=== PATIENT | male | born 1945 | race Caucasian/White ===

== ENCOUNTER → 2017-06-09 | Day surgery (SDC) | payer MEDICARE, OTHER ==
[~2017-06-09] VITALS: Ht 182.9 cm; Wt 129.5 kg
[~2017-06-09] MED LIST: AMPICILLIN/SULBAC 3 GM/NS 100 ML IV PRN; ASPI81TA11 PO; CHLORHEXIDINE GLUCONATE 2 % 1 PACK (2 CLOTHS) TOPICAL PRN; FURO1TAB60 PO; INSULIN HUMAN REGULAR 1,000 UNITS/10 ML VIAL SQ PRN; LACTATED RINGER'S 1000 ML IV PRN; LIDOCAINE 1%/EPINEPHrine 1:100,000 SOLN 30 ML VIAL INFIL ONE; LIPI40TA PO; METO50TA PO; METOPROLOL TARTRATE 25 MG TAB PO PRN; OFLOXACIN 0.3% OPTH SOLN 5 ML BTL EACH EAR ONE; ONDANSETRON HCL 4 MG/2 ML VIAL IV PUSH ONE; OXYMETAZOLINE HCL 0.05% 15 ML NASAL SPRAY NASAL ONE; POTA20TA5 PO; POVIDONE IODINE 5% (ANTISEPSIS KIT) 4 APPLICATIONS EACH NARE PRN; PRAD150C PO; PROPOFOL 200 MG/20 ML AMP IV ONE; SODIUM CHLORID 0.9% 500 ML IV PRN; WELLTAB39 PO; ZANT150T2 PO; ZETI10TA5 PO
[2017-06-09 06:41] VITALS: BP 151/68; PULSE 75; RESP 20; TEMP 97.7; O2SAT 96
[2017-06-09 09:10] VITALS: BP 152/75; PULSE 70; RESP 16; TEMP 98.2; O2SAT 95
--- NOTE | 2017-06-09 12:04 | EKG ---
Date Performed: 06/09/2017 Time Performed: 06:44:18 PTAGE: 72 years EKG: ATRIAL FIBRILLATION with controlled venticular rate Low limb lead voltage Compared to prior tracing no significant change PREVIOUS TRACING : 01/04/2013 10.43 DOCTOR: Khurram Pro Interpretating Date/Time 06/09/2017 12:02:30
--- NOTE | 2017-06-23 14:35 | MP ---
cc: FLOR BUSTOS M.D. DATE OF SURGERY: 06/09/2017 SURGEON: Flor Bustos MD. PREOPERATIVE DIAGNOSIS: 1. Mixed hearing loss. 2. Bilateral cerumen impaction. POSTOPERATIVE DIAGNOSIS: 1. Mixed hearing loss. 2. Bilateral cerumen impaction. OPERATION PERFORMED Bilateral cerumen disimpaction INDICATIONS Documented history and physical. DESCRIPTION OF OPERATION The patient was taken to OR #2 and placed in the supine position following induction of general anesthesia and intubation. He is laryngeal mask apparatus the right ear was examined under microscope and cleaned with a curette. There was dense pack of cerumen in the medial one half of the canal, which was adherent to the canal skin. This was mobilized using a Cade needle and retrieved with alligator forceps. The canal rae were intact. Tympanic membrane was intact and the middle ear well aerated. The left ear then operated in same fashion with the same findings and the procedure was terminated. The patient was reversed from anesthesia and taken to recovery in good condition. There were no complications or blood loss. MD DAMARIS Turcios/august /1:28 PM /2:27 PM
== END | disposition home or self-care (01) ==
LOC: PHSDC 06:09
PROVIDERS: ATTEND Otolaryngology
DX: H61.23 Impacted cerumen, bilateral (principal); H90.6 Mixed conductive and sensorineural hearing loss, bilateral; H60.312 Diffuse otitis externa, left ear; I10 Essential (primary) hypertension; I48.91 Unspecified atrial fibrillation; Z01.810 Encounter for preprocedural cardiovascular examination
CPT/HCPCS: 00124; 69210; 93005; J0295; J2405; J7120

== ENCOUNTER 2018-10-25 06:31 | Inpatient (IN) ==
--- NOTE | 2018-10-25 07:31 | ED ---
HPI General Chief complaint: Extremity Injury, Lower Stated complaint: Knee pain Time Seen by Provider: 10/25/18 06:59 History of Present Illness HPI narrative: Patient is a 73-year-old male presents emergency department for evaluation of bilateral knee pain worse on the left. Patient states he was up and about in his house today and he got up to go to the bathroom when he felt very faint fell down landing on bilateral flexed knees. Planing of anterior knee pain particularly on the left side. 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 Patient states he was not have any chest pain shortness of breath just feeling very faint. He does have a history of atrial fibrillation on Pradaxa. He denies any headache but does state that he was noted to have a scratch on his forehead. He attempted to crawl himself to a powder room and attempted to stand himself using the toilet is a lifting point was unable to get up. EMS found him on the floor in the bathroom and brought him to the emergency department for further workup. States the pain is minimal, left knee greater than right knee, associated signs symptoms and context as above. Related Data Home Medications Medication Instructions Recorded Confirmed aspirin 81 mg PO DAILY 06/11/18 10/25/18 atorvastatin [Lipitor] 40 mg PO HS 06/11/18 10/25/18 bupropion HCl [Wellbutrin XL] 300 mg PO QAM 06/11/18 10/25/18 ezetimibe [Zetia] 10 mg PO HS 06/11/18 10/25/18 furosemide [Lasix] 40 mg PO DAILY 06/11/18 10/25/18 metoprolol tartrate 50 mg PO BID 06/11/18 10/25/18 multivitamin 1 tab PO DAILY 06/11/18 10/25/18 ranitidine HCl 75 mg PO BID 06/11/18 10/25/18 dabigatran etexilate [Pradaxa] 150 mg PO BID 10/25/18 10/25/18 potassium chloride 10 meq PO DAILY 10/25/18 10/25/18 Previous Rx's Medication Instructions Recorded tramadol [Ultram] 50 mg PO Q6H PRN #12 tab 10/27/18 lorazepam 1 mg PO Q4-6H PRN #20 tab 10/29/18 Allergies Allergy/AdvReac Type Severity Reaction Status Date / Time No Known Allergies Allergy Verified 10/25/18 07:22 Review of Systems ROS: all other systems reviewed are negative PMFSH Social History Social History Substance History: No History of Abuse Second Hand Smoke Exposure: No Smoking Status: Former smoker Tobacco Type: Cigarettes How Often Do You Have a Drink Containing Alcohol: 4 or more times a week Recent Travel in [facility] within the Last 8 Weeks: No Recent Out of Country Travel within the Last 8 Weeks: No Immunization History Tetanus Immunization: Unsure Exam Narrative Exam Narrative: GENERAL: Well-developed well-nourished in no obvious distress, quite pleasant SKIN: Focused skin assessment warm/dry. HEAD: No pedraza signs no raccoon's eyes. Minimal excoriation of the left forehead. Normocephalic. EYES: Pupils equal and round. No scleral icterus. No injection or drainage. ENT: No nasal bleeding or discharge. Mucous membranes pink and moist. NECK: Trachea midline. No JVD. CARDIOVASCULAR: Regular rate and rhythm. No murmur appreciated. RESPIRATORY: No accessory muscle use. Clear to auscultation. Breath sounds equal bilaterally. GASTROINTESTINAL: Abdomen soft, non-tender, nondistended. Hepatic and splenic margins not palpable. MUSCULOSKELETAL: No obvious deformities. No clubbing. No cyanosis. No edema. Bilateral abrasions to the knees over the kneecaps. Patient does have tenderness with extension of the left knee. Right knee is full nontender range of motion. No joint effusion, no tenderness medially and laterally or posteriorly. Ankles, hips unremarkable. No midline CT or L-spine tenderness. NEUROLOGICAL: Awake and alert. No obvious cranial nerve deficits. Motor grossly within normal limits. Normal speech. PSYCHIATRIC: Appropriate mood and affect; insight and judgment normal. Course Initial Documented Vital Signs Temperature 97.9 F 10/25/18 06:33 Pulse Rate 77 10/25/18 06:33 Respiratory Rate 16 10/25/18 06:33 Blood Pressure 143/101 H 10/25/18 06:33 Pulse Oximetry 98 10/25/18 06:33 Last Documented Vital Signs Temperature 98.5 F 10/29/18 16:00 Pulse Rate 80 10/29/18 16:00 Respiratory Rate 16 10/29/18 16:00 Blood Pressure 126/59 L 10/29/18 16:00 Pulse Oximetry 97 10/29/18 16:00 Medical Decision Making MDM Narrative Medical decision making narrative: Patient room in the emergency department, he appears well vital signs within normal limits. No chest pain. Is endorsing presyncopal type symptoms leading to a fall today and inability to ambulate and put weight on his left knee. X-rays of the knees are negative. EKG shows atrial fibrillation with minimal ST segment depression in 2 3 and aVF but there is also an RSR prime pattern here indicating a nonspecific intraventricular conduction delay. This is an abnormal EKG but certainly does not represent acute ischemia. Patient's troponin is 0.23 and there is no previous for comparison. 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 Medical Screen Exam Complete: Yes Emergency Medical Condition: Yes Lab Data Result diagrams: 10/26/18 05:59 10/26/18 05:59 Lab Results 10/25/18 10/25/18 10/25/18 Range/Units 07:30 07:30 13:46 WBC 7.4 (4.0-11.0) th/mm3 RBC 3.78 L (4.50-5.90) mil/mm3 Hgb 13.3 (13.0-17.0) gm/dL Hct 38.5 L (39.0-51.0) % MCV 101.9 H (80.0-100.0) fL MCH 35.3 H (27.0-34.0) pg MCHC 34.7 (32.0-36.0) % RDW 16.0 (11.6-17.2) % Plt Count 245 (150-450) th/mm3 MPV 7.1 (7.0-11.0) fL Prelim Diff (Auto) Neut % (Auto) 67.9 (16.0-70.0) % Lymph % (Auto) 15.8 (9.0-44.0) % Vermilion % (Auto) 14.4 H (0.0-8.0) % Eos % (Auto) 1.2 (0.0-4.0) % Baso % (Auto) 0.7 (0.0-2.0) % Neut # (Auto) 5.0 (1.8-7.7) th/mm3 Lymph # (Auto) 1.2 (1.0-4.8) th/mm3 Vermilion # (Auto) 1.1 H (0.0-0.9) th/mm3 Eos # (Auto) 0.1 (0.0-0.4) th/mm3 Baso # (Auto) 0.1 (0.0-0.2) th/mm3 WBC Differential . Seg Neuts % (Manual) (16-70) % Band Neuts % (Manual) (0-6) % Lymphocytes % (Manual) (9-44) % Monocytes % (Manual) (0-8) % Abs Neuts (Manual) (1.8-7.7) th/mm3 Differential Comment Auto diff final Platelet Estimate (Normal) Platelet Morphology (Normal) Ovalocytes (None) Sodium 137 (136-145) meq/L Potassium 3.9 (3.5-5.1) meq/L Chloride 97 L (98-107) meq/L Carbon Dioxide 30.6 (21.0-32.0) meq/L Anion Gap 9 (5-15) meq/L BUN 10 (7-18) mg/dL Creatinine 1.11 (0.60-1.30) mg/dL Estimated GFR 65 L (>89) mL/min Random Glucose 103 (74-106) mg/dL Calcium 8.9 (8.5-10.1) mg/dL Total Creatine Kinase 70 (39-308) U/L Troponin I 0.23 H 0.21 H (0.02-0.05) ng/mL 10/25/18 10/26/18 10/26/18 Range/Units 20:03 05:59 05:59 WBC 6.7 (4.0-11.0) th/mm3 RBC 3.33 L (4.50-5.90) mil/mm3 Hgb 11.9 L (13.0-17.0) gm/dL Hct 33.6 L (39.0-51.0) % MCV 101.0 H (80.0-100.0) fL MCH 35.7 H (27.0-34.0) pg MCHC 35.3 (32.0-36.0) % RDW 15.8 (11.6-17.2) % Plt Count 188 (150-450) th/mm3 MPV 7.8 (7.0-11.0) fL Prelim Diff (Auto) Manual diff required Neut % (Auto) (16.0-70.0) % Lymph % (Auto) (9.0-44.0) % Vermilion % (Auto) (0.0-8.0) % Eos % (Auto) (0.0-4.0) % Baso % (Auto) (0.0-2.0) % Neut # (Auto) (1.8-7.7) th/mm3 Lymph # (Auto) (1.0-4.8) th/mm3 Vermilion # (Auto) (0.0-0.9) th/mm3 Eos # (Auto) (0.0-0.4) th/mm3 Baso # (Auto) (0.0-0.2) th/mm3 WBC Differential Manual diff final Seg Neuts % (Manual) 76 H (16-70) % Band Neuts % (Manual) 2 (0-6) % Lymphocytes % (Manual) 9 (9-44) % Monocytes % (Manual) 13 H (0-8) % Abs Neuts (Manual) 5.2 (1.8-7.7) th/mm3 Differential Comment . Platelet Estimate Normal (Normal) Platelet Morphology Normal (Normal) Ovalocytes 1+ H (None) Sodium 132 L (136-145) meq/L Potassium 3.6 (3.5-5.1) meq/L Chloride 94 L (98-107) meq/L Carbon Dioxide 26.7 (21.0-32.0) meq/L Anion Gap 11 (5-15) meq/L BUN 11 (7-18) mg/dL Creatinine 0.94 (0.60-1.30) mg/dL Estimated GFR 79 L (>89) mL/min Random Glucose 106 (74-106) mg/dL Calcium 8.2 L (8.5-10.1) mg/dL Total Creatine Kinase (39-308) U/L Troponin I 0.19 H (0.02-0.05) ng/mL Imaging Data Radiologist's impression: Carotid Doppler Study 10/25/18 00:00 CONCLUSION: 1. Right Internal Carotid Artery: No significant stenosis or atherosclerotic plaque is visualized. 2. Left Internal Carotid Artery: No significant stenosis or atherosclerotic plaque is visualized. Chest X-Ray 12/10/18 07:19 CONCLUSION: Moderate compensated cardiomegaly Head CT 10/25/18 07:19 CONCLUSION: Atrophy, otherwise negative for an acute process. Daron Latham MD FACR CONCLUSION: 1. . Knee X-Ray 10/25/18 07:19 CONCLUSION: Remote total arthroplasty, negative for fracture or joint effusion. Knee X-Ray 10/25/18 07:19 CONCLUSION: Soft tissue swelling, no joint effusion or fracture with remote total knee arthroplasty. Discharge Plan Discharge Disposition Patient Disposition: ED Admit(ED Internal Use Only) Discharge Condition Condition: Stable Discharge Order Discharge Orders: Cardiology Clear for Discharge (Routine); Ordered 10/26/18 Ordered By: Bora Lowery ED Use Only Admit Order (Routine); Ordered 10/25/18 Ordered By: Morris Forbes Discharge Details Diagnosis: Syncope, Elevated troponin Physicians Team ED Provider: Morris Forbes Primary Care Provider: Amari Hernandez Attending Provider: Marbella Hopkins Other Providers: Bora Lowery ; [facility]ency ; [facility] Status ED Status: Left Department Discharge Information Discharge Date/Time: 10/25/18 12:20
[2018-10-25 07:46] LABS: Baso # (Auto) 0.1 th/mm3 (0.0-0.2); Baso % (Auto) 0.7 % (0.0-2.0); Eos # (Auto) 0.1 th/mm3 (0.0-0.4); Eos % (Auto) 1.2 % (0.0-4.0); Hematocrit 38.5 % (39.0-51.0); Hemoglobin 13.3 gm/dL (13.0-17.0); Lymph # (Auto) 1.2 th/mm3 (1.0-4.8); Lymph % (Auto) 15.8 % (9.0-44.0); Mean Corpuscular HGB Conc 34.7 % (32.0-36.0); Mean Corpuscular Hemoglobin 35.3 pg (27.0-34.0); Mean Corpuscular Volume 101.9 fL (80.0-100.0); Mean Platelet Volume 7.1 fL (7.0-11.0); Mono # (Auto) 1.1 th/mm3 (0.0-0.9); Mono % (Auto) 14.4 % (0.0-8.0); Neut % (Auto) 67.9 % (16.0-70.0); Platelet Count 245 th/mm3 (150-450); Red Blood Count 3.78 mil/mm3 (4.50-5.90); White Blood Count 7.4 th/mm3 (4.0-11.0)
--- NOTE | 2018-10-25 07:52 | XR ---
EXAM DATE: 10/25/2018 7:50 AM EST AGE/SEX: 73 years / Male INDICATIONS: Shortness of breath. CLINICAL DATA: This is the patient's initial encounter. Patient reports that signs and symptoms have been present for 1 day and indicates a pain score of 0/10. MEDICAL/SURGICAL HISTORY: Myocardial infarction. Peripheral vascular disease. None. COMPARISON: [facility] [place]ST SINGLE AP, 01/04/2013. . FINDINGS: The heart is enlarged. The pulmonary vascularity is normal. There is rounded consolidation, pleural e ffusion or pneumothorax. CONCLUSION: Moderate compensated cardiomegaly Electronically signed by: Daron Latham MD 10/25/2018 7:51 AM EST
--- NOTE | 2018-10-25 07:53 | XR ---
EXAM DATE: 10/25/2018 7:48 AM EST AGE/SEX: 73 years / Male INDICATIONS: Right knee pain, fall. CLINICAL DATA: This is the patient's initial encounter. Patient reports that signs and symptoms have been present for 1 day and indicates a pain score of 8/10. MEDICAL/SURGICAL HISTORY: None. Total knee replacement, right. Total knee replacement, left. COMPARISON: [facility] – [place], KNEE RIGHT [facility] (1 OR 2 VW), 09/16/2013. . FINDINGS: Status post total knee arthroplasty remote past with degenerative changes about the medial side of th e femur. Anatomic alignment without fracture. No joint effusion. Moderate atherosclerotic vascular di sease. CONCLUSION: Remote total arthroplasty, negative for fracture or joint effusion. Electronically signed by: Daron Latham MD 10/25/2018 7:52 AM EST
--- NOTE | 2018-10-25 07:55 | CT ---
EXAM DATE: 10/25/2018 7:52 AM EST AGE/SEX: 73 years / Male INDICATIONS: Patient fell last night . No trauma to head CLINICAL DATA: This is the patient's initial encounter. Patient reports that signs and symptoms have been present for 1 day and indicates a pain score of 0/10. MEDICAL/SURGICAL HISTORY: Cardiovascular disease. Peripheral vascular disease. Coronary artery noelle nt. RADIATION DOSE: 64.63 CTDI (mGy) COMPARISON: No prior exams available for comparison. TECHNIQUE: CT of the head without contrast. Using automated exposure control and adjustment of the mA and/or kV according to patient size, radiation dose was kept as low as reasonably achievable to ob tain optimal diagnostic quality images. DICOM format image data is available electronically for revi ew and comparison. FINDINGS: There is central and cortical atrophy with dilatation of ventricular and sulcal spaces. There is no parenchymal hemorrhage, acute infarction or mass lesion identified. There are no extra-axial fluid c ollections appreciated. Periventricular white matter changes are noted. The posterior fossa is unrem arkable with midline fourth ventricle. The portion of the orbits and paranasal sinuses visualized are unremarkable. CONCLUSION: Atrophy, otherwise negative for an acute process. Daron Latham MD FACR CONCLUSION: 1. . Electronically signed by: Daron Latham MD 10/25/2018 7:53 AM EST
[2018-10-25 08:02] LABS: Calcium 8.9 mg/dL (8.5-10.1); Carbon Dioxide 30.6 meq/L (21.0-32.0); Potassium 3.9 meq/L (3.5-5.1)
[2018-10-25 08:05] LABS: Troponin I 0.23 ng/mL (0.02-0.05)
--- NOTE | 2018-10-25 08:15 | XR ---
EXAM DATE: 10/25/2018 7:53 AM EST AGE/SEX: 73 years / Male INDICATIONS: Left knee pain, fall. CLINICAL DATA: This is the patient's initial encounter. Patient reports that signs and symptoms have been present for 1 day and indicates a pain score of 7/10. MEDICAL/SURGICAL HISTORY: None. Total knee replacement, left. Total knee replacement, right. COMPARISON: [facility] – [place], KNEE RIGHT [facility] (1 OR 2 VW), 09/16/2013. . FINDINGS: Remote total knee in the past. Extensive atherosclerotic vascular calcifications. Degenerative changes patellofemoral compartment. M inimal soft tissue swelling. No joint effusion or fracture. CONCLUSION: Soft tissue swelling, no joint effusion or fracture with remote total knee arthroplasty. Electronically signed by: Daron Latham MD 10/25/2018 8:13 AM EST
[2018-10-25] MEDS ORDERED: Bisacodyl 10 MG Supp RECTAL PRN (09:08)
[2018-10-25] MEDS ORDERED: Acetaminophen 325 MG Tablet PO PRN ×2 (09:08→11:00)
--- NOTE | 2018-10-25 10:52 | P.HPIM ---
History of Present Illness Primary Care Physician: Amari Hernandez MD Chief Complaint: I fell. History of Present Illness: 73-year-old white male with a history of chronic atrial fibrillation, hypertension, hyperlipidemia, peripheral vascular disease, congestive heart failure presented emergency room after he sustained a fall earlier today about 12:30 in the morning. Patient states that he was attempting to go to the bathroom and fell close to the laundry room. Prior to the fall he felt slight dizziness. He did not lose conscious and fell on his left side injuring his left knee. Since the fall he could not put weight over the left knee and therefore came in for evaluation. He denies any loss of consciousness from the fall. He usually ambulates independently and has a history of bilateral knee replacements. He denies any associated palpitations, chest pains nor any active shortness of breath. He reports he has chronic dyspnea on exertion secondary to his chronic congestive heart failure is currently doing cardiac rehab. He states his project development leader is Dr. Fuentes. Of note, he states over the past 2 days he has had intermittent dizziness. He denies any associated localized weakness of numbness at this time. He is currently on anticoagulation of Pradaxa for his chronic atrial fibrillation. Of note, patient's drinks a minimum of 7 alcoholic drinks on a daily basis. He denies history of alcohol withdrawal. Review of Systems Constitutional: Reports as per HPI, Denies body ache(s), Denies chills, Reports fatigue, Denies fever(s) and Denies headache(s) Eyes: Denies blurry vision, Denies change in vision and Denies eye pain Ears, Nose, Mouth, and Throat: Denies abnormal hearing, Denies headache(s), Denies mouth pain, Denies nasal congestion, Denies neck pain and Denies sore throat Cardiovascular: Denies chest pain, Denies diaphoresis, Denies rapid heart rate, Reports pedal edema (Chronic), Denies palpitations, Reports dyspnea on exertion and Denies paroxysmal nocturnal dyspnea Respiratory: Reports as per HPI, Denies cough, Reports dyspnea, Reports dyspnea on exertion and Denies wheezing Gastrointestinal: Denies abdominal pain, Denies constipation, Denies loose stools, Denies nausea and Denies vomiting Musculoskeletal: Denies back pain, Denies myalgias, Denies arthralgias, Denies neck pain and Denies numbness Skin/Breast: Denies new lesions and Denies rash Neurologic: Denies abnormal hearing, Denies abnormal gait, Reports dizziness, Denies headache(s), Denies focal weakness, Denies memory loss, Denies numbness and Denies disequilibrium Psychiatric: Denies anxiety, Denies depression and Denies memory loss Endocrine: Denies cold intolerance, Denies heat intolerance and Denies palpitations Hematologic/Lymphatic: Reports easy bleeding and Reports easy bruising ( Secondary to being on Pradaxa) [facility] Family History Family History Other No family history of disorders Social History Social History Substance History: No History of Abuse Second Hand Smoke Exposure: No Smoking Status: Former smoker Tobacco Type: Cigarettes How Often Do You Have a Drink Containing Alcohol: 4 or more times a week Recent Travel in [facility] within the Last 8 Weeks: No Recent Out of Country Travel within the Last 8 Weeks: No Immunization History Tetanus Immunization: Unsure Medications and Allergies Allergies Allergy/AdvReac Type Severity Reaction Status Date / Time No Known Allergies Allergy Verified 10/25/18 07:22 Home Medications Medication Instructions Recorded Confirmed Type aspirin 81 mg PO DAILY 06/11/18 10/25/18 History atorvastatin [Lipitor] 40 mg PO HS 06/11/18 10/25/18 History bupropion HCl [Wellbutrin XL] 300 mg PO QAM 06/11/18 10/25/18 History ezetimibe [Zetia] 10 mg PO HS 06/11/18 10/25/18 History furosemide [Lasix] 40 mg PO DAILY 06/11/18 10/25/18 History metoprolol tartrate 50 mg PO BID 06/11/18 10/25/18 History multivitamin 1 tab PO DAILY 06/11/18 10/25/18 History ranitidine HCl 75 mg PO BID 06/11/18 10/25/18 History dabigatran etexilate [Pradaxa] 150 mg PO BID 10/25/18 10/25/18 History potassium chloride 10 meq PO DAILY 10/25/18 10/25/18 History Active Medications: Active Medications Acetaminophen (Tylenol) 650 mg PO Q4H PRN PRN Reason: Temp > 100.4 Al Hydroxide/Mg Hydroxide (Milk Of Magnesia Liq) 30 ml PO Q12H PRN PRN Reason: Mild Constipation Bisacodyl (Dulcolax Supp) 10 mg RECTAL DAILY PRN PRN Reason: SEVERE CONSITIPATION Lactulose (Lactulose Liq) 30 ml PO DAILY PRN PRN Reason: SEVERE CONSITIPATION Ondansetron HCl (Zofran Inj) 4 mg IV.PUSH Q6H PRN PRN Reason: NAUSEA OR VOMITING Sennosides (Senokot) 17.2 mg PO Q12H PRN PRN Reason: Moderate Constipation Sodium Chloride (Ns Flush) 2 ml IV.FLUSH BID GLORIA Sodium Chloride (Ns Flush) 2 ml IV.FLUSH PRN PRN PRN Reason: FLUSH AFTER USING IV ACCESS Physical Exam Vital signs: Last Vital Signs Temp 97.8 F 10/25/18 09:09 Pulse 84 10/25/18 09:09 Resp 17 10/25/18 09:09 BP 132/77 10/25/18 09:09 Pulse Ox 99 10/25/18 09:09 Intake & Output 10/23/18 10/24/18 10/25/18 10/26/18 06:59 06:59 06:59 06:59 Weight 122.47 kg Narrative: GENERAL: Well-nourished well-developed white male in no acute distress SKIN: Warm and dry. Abrasions over the left knee HEAD: Atraumatic. Normocephalic. EYES: Pupils equal and round. No scleral icterus. No injection or drainage. ENT: No nasal bleeding or discharge. Mucous membranes pink and moist. NECK: Trachea midline. No JVD. CARDIOVASCULAR: Irregular rhythm regular rate RESPIRATORY: Minimal few expiratory wheeze bilaterally GASTROINTESTINAL: Abdomen soft, non-tender, nondistended. Hepatic and splenic margins not palpable. Normoactive bowel sounds MUSCULOSKELETAL: Extremities without clubbing, cyanosis, trace to 1+ edema, left knee with swelling and abrasion over the patella NEUROLOGICAL: Awake and alert to person place and time and situation. No obvious cranial nerve deficits. Motor grossly within normal limits. Five out of 5 muscle strength in the arms; limited range of motion in left lower leg due to pain, normal speech. PSYCHIATRIC: Appropriate mood and affect; insight and judgment normal. Results Labs CBC & Chem 7: 10/25/18 07:30 12 07:30 Imaging Impressions Chest X-Ray 10/25/18 07:19 CONCLUSION: Moderate compensated cardiomegaly Head CT 12/10/18 07:19 CONCLUSION: Atrophy, otherwise negative for an acute process. Daron Latham MD FACR CONCLUSION: 1. . Knee X-Ray 10/25/18 07:19 CONCLUSION: Remote total arthroplasty, negative for fracture or joint effusion. Knee X-Ray 10/25/18 07:19 CONCLUSION: Soft tissue swelling, no joint effusion or fracture with remote total knee arthroplasty. ECG Prior ECG tracings: not available for review Interpretation: Atrial fibrillation with rapid regular response of 88, minimum ST wave depressions in V3 through V6, no EKG for comparison Caprini VTE Risk Assessment Caprini VTE Risk Assessment: Moderate/High Risk (score >= 2) Caprini Risk Assessment Model: Point Value = 1 Point Value = 2 Point Value = 3 Point Value = 5 Age 41-60 Minor surgery BMI > 25 kg/m2 Swollen legs Varicose veins or History of unexplained or recurrent spontaneous Oral contraceptives or hormone replacement Sepsis (< 1 month) Serious lung disease, including pneumonia (< 1 month) Abnormal pulmonary function Acute myocardial infarction Congestive heart failure (< 1 month) History of inflammatory bowel disease Medical patient at bed rest Age 61-74 Arthroscopic surgery Major open surgery (> 45 min) Laparoscopic surgery (> 45 min) Malignancy Confined to bed (> 72 hours) Immobilizing plaster cast Central venous access Age >= 75 History of VTE Family history of VTE Factor V Leiden Prothrombin [id number] Lupus anticoagulant Anticardiolipin antibodies Elevated serum homocysteine Heparin-induced thrombocytopenia Other congenital or acquired thrombophilia Stroke (< 1 month) Elective arthroplasty Hip, pelvis, or leg fracture Acute spinal cord injury (< 1 month) Prophylaxis Regimen: Total Risk Factor Score Risk Level Prophylaxis Regimen 0-1 Low Early ambulation 2 Moderate Order ONE of the following: *Sequential Compression Device (SCD) *Heparin 5000 units SQ BID 3-4 Higher Order ONE of the following medications: *Heparin 5000 units SQ TID *Enoxaparin/Lovenox 40 mg SQ daily (WT < 150 kg, CrCl > 30 mL/min) *Enoxaparin/Lovenox 30 mg SQ daily (WT < 150 kg, CrCl > 10-29 mL/min) *Enoxaparin/Lovenox 30 mg SQ BID (WT < 150 kg, CrCl > 30 mL/min) AND/OR *Sequential Compression Device (SCD) 5 or more Highest Order ONE of the following medications: *Heparin 5000 units SQ TID (Preferred with Epidurals) *Enoxaparin/Lovenox 40 mg SQ daily (WT < 150 kg, CrCl > 30 mL/min) *Enoxaparin/Lovenox 30 mg SQ daily (WT < 150 kg, CrCl > 10-29 mL/min) *Enoxaparin/Lovenox 30 mg SQ BID (WT < 150 kg, CrCl > 30 mL/min) AND *Sequential Compression Device (SCD) Assessment and Plan Plan 73-year-old white male with a history of chronic atrial fibrillation on anticoagulation, hypertension, coronary artery disease, congestive heart failure , peripheral artery disease presents to the ED after he sustained a fall preceded by dizziness. Status post fall with dizziness with history of chronic atrial fibrillation with mildly elevated troponin Iat this time will place the patient on telemetry , check orthostatic blood pressure, We will continue to trend troponin and obtain serial EKGs. Obtain a cardiology consultation with Dr. Fuentes for further evaluation. Check carotid ultrasound. Patient does not know his baseline EF. Will defer to cardiology to determine if repeat 2D echo needed to be done during this visit. Status post fall with left knee contusion-physical therapy consultation to evaluate gait and balance. Ice to the area and pain control. History of chronic atrial fibrillation-continue metoprolol for rate control, continue with aspirin and Pradaxa. History of hypertensioncheck orthostatics, and monitor blood pressure. History of congestive heart failure with unknown EF per patient-not in any acute exacerbation. Continue with home medication and Lasix. History of coronary disease, hyperlipidemiacontinue with aspirin beta karin and statin. Daily alcohol use rule out alcohol abuse - monitor for withdraw symptoms, CIWA protocol Macrocytosis likely due to history of daily alcohol use.-Start thiamine folate, check B12 and folate levels as outpatient. DVT prophylaxis continue with Pradaxa. Placed on observation
[2018-10-25] MEDS ORDERED: Haloperidol Inj 5 MG/ML Ampul IV.PUSH PRN (10:54)
--- NOTE | 2018-10-25 14:33 | MB ---
cc: Bora Lowery MD DATE: 10/25/2018 REASON FOR CONSULTATION: Abnormal troponin level, near syncope. HISTORY OF PRESENT ILLNESS: The patient is a 73-year-old white male, followed in our office by Dr. Sidney Fuentes, with a history of multiple medical problems including sleep apnea, coronary artery disease, chronic atrial fibrillation, mild cardiomyopathy, aortic stenosis, peripheral vascular disease, who presented to the emergency department, mainly with complaints of bilateral knee pain. The patient had gotten up in his house to go to the bathroom when he felt moderately lightheaded, causing him to fall gradually to the ground. He never lost consciousness. The patient states for the past 3 weeks he has had intermittent lightheadedness, lasting for a few minutes, most often when standing, although occasionally when sitting. He denies chest pain, shortness of breath, pedal edema, paroxysmal nocturnal dyspnea, palpitations. He also denies vertigo, fevers, headache. PAST MEDICAL HISTORY: 1. Sleep apnea. 2. Hyperlipidemia. 3. Hypertension. 4. Chronic deep venous insufficiency. 5. Coronary artery disease, status post non-ST elevation myocardial infarction 2000, at which time cardiac catheterization showed a subtotally occluded second obtuse marginal, which was treated medically. 6. Gout. 7. Chronic atrial fibrillation. 8. Mild cardiomyopathy with ejection fraction reportedly 40% on echo 03/05/2018. 9. Qrmu-er-tapovryb aortic stenosis with a mean transvalvular aortic gradient of 26 mmHg on echo 03/05/2018. 10. Peripheral vascular disease, status post right superficial femoral artery stent 01/04/2013. He also apparently has an abdominal aortic aneurysm, which has been followed chronically by Dr. Peggy Lindsay. CARDIAC MEDICATIONS AT HOME: 1. Aspirin 81 mg daily. 2. Furosemide 40 mg daily. 3. Lipitor 40 mg at bedtime. 4. Zetia 10 mg at bedtime. 5. Metoprolol tartrate 50 mg b.i.d. 6. Potassium citrate 20 mEq daily. 7. Pradaxa 150 mg b.i.d. ALLERGIES: NO KNOWN DRUG ALLERGIES. FAMILY HISTORY: Noncontributory. SOCIAL HISTORY: The patient quit smoking more than 20 years ago. He drinks occasional alcohol. REVIEW OF SYSTEMS: As in the history of present illness, otherwise negative or noncontributory. He also denies headache, visual changes, unilateral weakness or numbness, abdominal pain, melena, dyspepsia, bright red blood per rectum. PHYSICAL EXAMINATION: VITAL SIGNS: Blood pressure 143/90 with a pulse of 105, respirations 20. GENERAL: He is a well-developed, well-nourished white male, in no acute distress. HEENT: Jugular venous pressure is normal. Carotid pulses are 2+ bilaterally and without bruits. CHEST: Reveals clear lung bravo. CARDIAC: He has an irregularly irregular rhythm with a grade 2/6 systolic ejection murmur heard at the base of the heart. The S2 heart sound is normal. No gallop is audible. ABDOMEN: He has a soft, obese, nontender abdomen. Bowel sounds are present. There is no definite hepatosplenomegaly. EXTREMITIES: Reveals no clubbing, cyanosis or edema. LABORATORY DATA: EKG shows atrial fibrillation, nonspecific intraventricular conduction delay, nonspecific T-wave abnormalities. Chest x-ray shows no acute disease. Includes WBC 7.4, hemoglobin 13.3, platelets 245,000. Potassium 3.9, BUN 10, creatinine 1.11. CK 70, troponin 0.23. IMPRESSION: Possible near syncope, recent episodic lightheadedness, minimally abnormal troponin level in this 73-year-old white male with a history of multiple medical problems including coronary artery disease, chronic atrial fibrillation, peripheral vascular disease, ejection fraction 40%, sleep apnea. Overall, there is no other evidence for acute coronary syndrome. He has had no recent angina. EKG shows no changes from old EKGs. CK level is negative for myocardial infarction. The etiology of his near-syncopal episode is not entirely clear. Overall, I doubt he is having significant zainab or tachyarrhythmias. There is no definite evidence for congestive heart failure. RECOMMENDATIONS: 1. Continue cardiac monitoring. 2. Check 2-D echo to reassess his left ventricular function and consider adding an LOREN inhibitor. MD JULIÁN Johnson/cristofer , 01:22 PM , 01:30 PM MARLA
--- NOTE | 2018-10-25 16:20 | US ---
EXAM DATE: 10/25/2018 4:14 PM EST AGE/SEX: 73 years / Male INDICATIONS: Syncope. Fall. CLINICAL DATA: This is the patient's initial encounter. Patient reports that signs and symptoms have been present for 1 day and indicates a pain score of 0/10. MEDICAL/SURGICAL HISTORY: . Cardiovascular disease. Peripheral vascular disease. . Coronary ar ghazal stent. COMPARISON: POI, CTA AORTA W/ RUNOFF, 08/18/2017. . VELOCITY PARAMETERS: ICA/CCA Ratio: Right 1.0 , Left 1.4 ICA: Right 110 cm/sec, Left 121 cm/sec CCA: Right 113 cm/sec, Left 89 cm/sec ECA: Right 86 cm/sec, Left 85 cm/sec Vertebral: Right 52 cm/sec antegrade, Left 72 cm/sec antegrade FINDINGS: Right Carotid: No significant plaque is visualized.The waveforms are within normal limits. Left Carotid: No significant plaque is visualized. The waveforms are within normal limits. Other: None. CONCLUSION: 1. Right Internal Carotid Artery: No significant stenosis or atherosclerotic plaque is visualized. 2. Left Internal Carotid Artery: No significant stenosis or atherosclerotic plaque is visualized. Electronically signed by: Jaylon Lacy MD 10/25/2018 4:19 PM EST
--- NOTE | 2018-10-25 19:14 | ECG ---
Date Performed: 10/25/2018 Time Performed: 08:33:23 PTAGE: 73 years EKG: ATRIAL FIBRILLATION MODERATE INTRAVENTRICULAR CONDUCTION DELAY MODERATE ST DEPRESSION ABNOR MAL ECG PREVIOUS TRACING : 06/09/2017 06.44 Since the previous tracing, no significant change noted DOCTOR: Benito Jaimes Interpretating Date/Time 10/25/2018 19:12:21
--- NOTE | 2018-10-25 20:43 | ECHRPT ---
Indication: CARDIOMYOPATHY CONCLUSIONS Moderately dilated left ventricle. Wall thickness is normal. The left ventricular systolic function is moderately reduced with an estimated ejection fraction of 40%. Global hypokinesis. Mild mitral annular calcification is present. Mild mitral valve regurgitation. Mild thickening of the aortic valve leaflets. Mild aortic valve stenosis. Aortic valve mean gradien t is 23 mmHg. Mild aortic valve regurgitation. There is mild tricuspid valve regurgitation. The estimated pulmonary arterial pressure is 40 mmHg. BP: / HR: Rhythm: MEASUREMENTS (Male / Female) Normal Values Technical Quality: 2D ECHO LV Diastolic Diameter PLAX 6.3 cm 4.2 - 5.9 / 3.9 - 5.3 cm LV Systolic Diameter PLAX 5.2 cm IVS Diastolic Thickness 1.0 cm 0.6 - 1.0 / 0.6 - 0.9 cm LVPW Diastolic Thickness 0.7 cm 0.6 - 1.0 / 0.6 - 0.9 cm LV Relative Wall Thickness 0.3 RV Internal Dim ED PLAX 2.2 cm LVOT Diameter 2.0 cm LA Systolic Diameter LX 5.1 cm 3.0 - 4.0 / 2.7 - 3.8 cm DOPPLER AV Peak Velocity 331.0 cm/s AV Peak Gradient 43.8 mmHg AV Mean Gradient 22.4 mmHg AV Velocity Time Integral 69.0 cm AI Peak Velocity 311.0 cm/s AI Peak Gradient 38.7 mmHg AI Pressure Half Time 669.0 ms LVOT Peak Velocity 117.0 cm/s LVOT Peak Gradient 5.5 mmHg LVOT Velocity Time Integral 22.3 cm AV Area Cont Eq vti 1.0 cm AV Area Cont Eq pk 1.1 cm Mitral E Point Velocity 143.0 cm/s TR Peak Velocity 337.0 cm/s TR Peak Gradient 45.4 mmHg Right Atrial Pressure 15.0 mmHg Pulmonary Artery Systolic Pressu 60.4 mmHg Right Ventricular Systolic Press 60.4 mmHg FINDINGS LEFT VENTRICLE Moderately dilated left ventricle. Wall thickness is normal. The left ventricular systolic function is moderately reduced with an estimated ejection fraction of 40%. Global hypokinesis. RIGHT VENTRICLE Normal right ventricular size and systolic function. LEFT ATRIUM The left atrial size is normal. RIGHT ATRIUM The right atrial size is normal. ATRIAL SEPTUM Normal atrial septal thickness without atrial level shunting by limited color doppler interrogation. AORTA The aortic root and proximal ascending aorta are normal in size on limited imaging. MITRAL VALVE Mild mitral annular calcification is present. Mild mitral valve regurgitation. AORTIC VALVE Mild thickening of the aortic valve leaflets. Mild aortic valve stenosis. Aortic valve mean gradien t is 23 mmHg. Mild aortic valve regurgitation. TRICUSPID VALVE There is mild tricuspid valve regurgitation. The estimated pulmonary arterial pressure is 40 mmHg. PULMONARY VALVE Trivial pulmonary valve regurgitation. VESSELS The inferior vena cava is normal in size. PERICARDIUM There is a trivial pericardial effusion present. Bora Lowery MD (Electronically Signed) Final Date:25 October 2018 20:41
[2018-10-25] MEDS: Famotidine 20 MG Tablet PO SCH (21:34)
[2018-10-25] MEDS: Metoprolol Tartrate 50 MG Tablet PO SCH (21:34)
[2018-10-25] MEDS: Ezetimibe 10 MG Tablet PO SCH (21:34)
[2018-10-25] MEDS: LORazepam 1 MG Tablet PO PRN (23:10)
[2018-10-26] MEDS: LORazepam 1 MG Tablet PO PRN (03:55)
[2018-10-26 07:10] LABS: Hematocrit 33.6 % (39.0-51.0); Hemoglobin 11.9 gm/dL (13.0-17.0); Mean Corpuscular HGB Conc 35.3 % (32.0-36.0); Mean Corpuscular Hemoglobin 35.7 pg (27.0-34.0); Mean Platelet Volume 7.8 fL (7.0-11.0); Platelet Count 188 th/mm3 (150-450); Red Blood Count 3.33 mil/mm3 (4.50-5.90); Red Cell Distribution Width 15.8 % (11.6-17.2); White Blood Count 6.7 th/mm3 (4.0-11.0)
[2018-10-26 07:38] LABS: Calcium 8.2 mg/dL (8.5-10.1); Carbon Dioxide 26.7 meq/L (21.0-32.0); Potassium 3.6 meq/L (3.5-5.1)
--- NOTE | 2018-10-26 08:33 | ECG ---
Date Performed: 10/25/2018 Time Performed: 18:16:28 PTAGE: 73 years EKG: ATRIAL FIBRILLATION MODERATE INTRAVENTRICULAR CONDUCTION DELAY MINIMAL ST DEPRESSION ABNORM AL RHYTHM ECG PREVIOUS TRACING : 10/25/2018 08.33 DOCTOR: Eleazar Gutierrez Interpretating Date/Time 10/26/2018 08:29:11
[2018-10-26] MEDS: Famotidine 20 MG Tablet PO SCH ×2 (08:36→21:04)
[2018-10-26 08:37] LABS: Lymphocytes 9 % (9-44); Monocytes 13 % (0-8); Ovalocytes 1+
[2018-10-26] MEDS: Furosemide 40 MG Tablet PO SCH (08:37)
[2018-10-26] MEDS: buPROPion 150 MG 12 HR Tablet PO SCH ×2 (08:37→21:04)
[2018-10-26] MEDS: Folic Acid 1 MG Tablet PO SCH (08:37)
[2018-10-26] MEDS: Metoprolol Tartrate 50 MG Tablet PO SCH ×2 (08:37→21:04)
[2018-10-26 08:38] LABS: Platelet Estimate Normal (Normal); Platelet Morphology Normal (Normal)
[2018-10-26] MEDS ORDERED: POTASSIUM CITRATE 20 MEQ PO SCH (09:00)
--- NOTE | 2018-10-26 09:19 | P.PNIM ---
Subjective Interval history: He reports he has not had any recurrent dizziness. No headaches. Only complains of bilateral knee pain worse on the left side since the fall and has not been able to get up and ambulate much. Asking for ice pack. No complaints of chest pain or palpitations. No anxiety. Physical Exam Vital signs: Last Vital Signs Temp 97.8 F 10/26/18 04:00 Pulse 89 10/26/18 04:00 Resp 18 10/26/18 04:00 BP 125/85 10/26/18 04:00 Pulse Ox 95 10/26/18 04:00 Intake & Output 10/24/18 10/25/18 10/26/18 10/27/18 06:59 06:59 06:59 06:59 Intake Total 480 / 480 Output Total 1000 / 1000 Balance -520 / -520 Weight 122.47 kg 118.8 kg Narrative: GENERAL: Well-nourished well-developed white male in no acute distress CARDIOVASCULAR: Irregular rhythm regular rate RESPIRATORY: Minimal few expiratory wheeze bilaterally GASTROINTESTINAL: Abdomen soft, non-tender, nondistended. Normoactive bowel sounds MUSCULOSKELETAL: Extremities without clubbing, cyanosis, trace to 1+ edema, left knee with swelling and abrasion over the patella, limited range of motion secondary to the pain NEUROLOGICAL: Awake and alert to person place and time and situation. No obvious cranial nerve deficits. Motor grossly within normal limits. Five out of 5 muscle strength in the arms; limited range of motion in left lower leg due to pain, right lower leg limited range of motion secondary to the pain, normal speech. PSYCHIATRIC: Appropriate mood and affect; insight and judgment normal. Results Labs CBC & Chem 7: 10/26/18 05:59 10/26/18 05:59 Imaging Imaging: Impressions Carotid Doppler Study 10/25/18 00:00 CONCLUSION: 1. Right Internal Carotid Artery: No significant stenosis or atherosclerotic plaque is visualized. 2. Left Internal Carotid Artery: No significant stenosis or atherosclerotic plaque is visualized. Assessment and Plan Plan 73-year-old white male with a history of chronic atrial fibrillation on anticoagulation, hypertension, coronary artery disease, congestive heart failure , peripheral artery disease presents to the ED after he sustained a fall preceded by dizziness. Status post fall with dizziness/near syncope with history of chronic atrial fibrillation with mildly elevated troponin Iat this time will place the patient on telemetry, No significant changes with serial troponins and EKG. Status post evaluation with cardiology, Dr. Balderas feels there is no evidence for acute coronary syndrome. There is no EKG changes compared to the old EKG carotid ultrasound showed no significant stenosis. Repeat 2D echo will be done , previous echo obtain February 2018 showed EF of 40% , LOREN inhibitor Vasotec has been started. Status post fall with left knee contusion-physical therapy consultation to evaluate gait and balance. Continue ice to the area and pain control. Patient still dependent with transfers and ambulating. Not ready for discharge. We will continue with physical therapy today History of chronic atrial fibrillation-continue metoprolol for rate control, continue with aspirin and Pradaxa. History of hypertension, uncontrolled labile we will continue to monitor with addition of Vasotec. History of chronic systolic congestive heart failure not in any acute exacerbation. Continue with home medication and Lasix and Vasotec. History of coronary disease, hyperlipidemiacontinue with aspirin beta karin and statin. Daily alcohol use rule out alcohol abuse - monitor for withdraw symptoms, CIWA protocol Macrocytosis likely due to history of daily alcohol use.-Start thiamine folate, check B12 and folate levels as outpatient. DVT prophylaxis Pradaxa. Placed on observation Discharge Planning: Home with home health care PT when able to ambulate Progress Note: Quality VTE Deep Vein Thrombosis/Pulmonary Embolism Present on Admission: No
--- NOTE | 2018-10-26 09:59 | P.PNCA ---
Subjective Interval history: No CP, dyspnea, dizziness, near syncope, palpitations. Medications and Allergies Active Medications: Active Medications Acetaminophen (Tylenol) 650 mg PO Q4H PRN PRN Reason: t>100.4 or pain 1 to 5 Hydrocodone Bitart/Acetaminophen ([place] 5/325) 1 tab PO Q6H PRN PRN Reason: BREAKTHROUGH PAIN Al Hydroxide/Mg Hydroxide (Milk Of Magnesia Liq) 30 ml PO Q12H PRN PRN Reason: Mild Constipation Aspirin (Ecotrin) 81 mg PO DAILY [facility] Last Admin: 10/26/18 08:37 Dose: 81 mg Atorvastatin Calcium (Lipitor) 40 mg PO HS [facility] Last Admin: 10/25/18 21:34 Dose: 40 mg Bisacodyl (Dulcolax Supp) 10 mg RECTAL DAILY PRN PRN Reason: SEVERE CONSITIPATION Bupropion HCl (Wellbutrin Sr) 150 mg PO BID [facility] Last Admin: 10/26/18 08:37 Dose: 150 mg Dabigatran (Pradaxa) 150 mg PO BID [facility] Last Admin: 10/26/18 08:37 Dose: 150 mg Ezetimibe (Zetia) 10 mg PO HS [facility] Last Admin: 10/25/18 21:34 Dose: 10 mg Enalapril Maleate (Vasotec) 10 mg PO BID [facility] Last Admin: 10/26/18 08:37 Dose: 10 mg Famotidine (Pepcid) 10 mg PO BID [facility] Last Admin: 10/26/18 08:36 Dose: 10 mg Flumazenil (Romazecon Inj) 0.2 mg IV.PUSH Q1M PRN PRN Reason: OVERSEDATION Folic Acid (Folic Acid) 1 mg PO DAILY [facility] Last Admin: 10/26/18 08:37 Dose: 1 mg Furosemide (Lasix) 40 mg PO DAILY [facility] Last Admin: 10/26/18 08:37 Dose: 40 mg Haloperidol Lactate (Haldol Inj) 1 mg IV.PUSH Q15M PRN PRN Reason: for severe agitation Lactulose (Lactulose Liq) 30 ml PO DAILY PRN PRN Reason: SEVERE CONSITIPATION Lorazepam (Ativan Inj) 1 mg IV.PUSH Q4H PRN PRN Reason: for CIWA 8-10 Lorazepam (Ativan Inj) 2 mg IV.PUSH Q15M PRN PRN Reason: for CIWA > 20 Lorazepam (Ativan Inj) 2 mg IV.PUSH Q1H PRN PRN Reason: for CIWA 15-20 Lorazepam (Ativan Inj) 2 mg IV.PUSH Q2H PRN PRN Reason: for CIWA 11-14 Lorazepam (Ativan) 1 mg PO Q4H PRN PRN Reason: for CIWA 8-10 Last Admin: 10/26/18 03:55 Dose: 1 mg Lorazepam (Ativan) 2 mg PO Q2H PRN PRN Reason: for CIWA 11-14 Meclizine HCl (Antivert) 25 mg PO Q6H PRN PRN Reason: DIZZINESS Metoprolol Tartrate (Lopressor) 50 mg PO BID [facility] Last Admin: 10/26/18 08:37 Dose: 50 mg Multivitamins (Theragran) 1 tab PO DAILY [facility] Last Admin: 10/26/18 08:37 Dose: 1 tab Ondansetron HCl (Zofran Inj) 4 mg IV.PUSH Q6H PRN PRN Reason: NAUSEA OR VOMITING Last Admin: 10/26/18 03:55 Dose: 4 mg Potassium Chloride (Klor-Con 10) 10 meq PO DAILY [facility] Last Admin: 10/26/18 08:37 Dose: 10 meq Sennosides (Senokot) 17.2 mg PO Q12H PRN PRN Reason: Moderate Constipation Sodium Chloride (Ns Flush) 2 ml IV.FLUSH BID [facility] Last Admin: 10/26/18 08:39 Dose: 2 ml Sodium Chloride (Ns Flush) 2 ml IV.FLUSH PRN PRN PRN Reason: FLUSH AFTER USING IV ACCESS Thiamine HCl (Vitamin B1) 100 mg PO BID [facility] Last Admin: 10/26/18 08:37 Dose: 100 mg Tramadol HCl (Ultram) 50 mg PO Q6H PRN PRN Reason: pain 6 to 10 Last Admin: 10/25/18 23:10 Dose: 50 mg Allergies Allergy/AdvReac Type Severity Reaction Status Date / Time No Known Allergies Allergy Verified 10/25/18 07:22 Home Medications Medication Instructions Recorded Confirmed Type aspirin 81 mg PO DAILY 06/11/18 10/25/18 History atorvastatin [Lipitor] 40 mg PO HS 06/11/18 10/25/18 History bupropion HCl [Wellbutrin XL] 300 mg PO QAM 06/11/18 10/25/18 History ezetimibe [Zetia] 10 mg PO HS 06/11/18 10/25/18 History furosemide [Lasix] 40 mg PO DAILY 06/11/18 10/25/18 History metoprolol tartrate 50 mg PO BID 06/11/18 10/25/18 History multivitamin 1 tab PO DAILY 06/11/18 10/25/18 History ranitidine HCl 75 mg PO BID 06/11/18 10/25/18 History dabigatran etexilate [Pradaxa] 150 mg PO BID 10/25/18 10/25/18 History potassium chloride 10 meq PO DAILY 10/25/18 10/25/18 History Physical Exam Vital signs: Vital Signs 10/25/18 11:15 10/25/18 12:20 10/25/18 13:00 Temperature 98.3 F 97.8 F 98.4 F Pulse Rate 88 89 105 H Respiratory Rate 19 17 20 Blood Pressure 114/65 132/60 143/90 H Pulse Oximetry 97 99 10/25/18 16:00 10/25/18 20:00 10/26/18 00:00 Temperature 97.1 F L 98.6 F 97.8 F Pulse Rate 97 H 110 H 86 Respiratory Rate 18 20 18 Blood Pressure 172/74 H 119/65 141/96 H Pulse Oximetry 96 95 98 10/26/18 04:00 10/26/18 08:00 Temperature 97.8 F 98.1 F Pulse Rate 89 88 Respiratory Rate 18 19 Blood Pressure 125/85 147/72 H Pulse Oximetry 95 94 L Intake & Output 10/25/18 10/26/18 10/26/18 18:59 06:59 18:59 Intake Total 480 / 480 0 / 0 Output Total 1000 / 1000 Balance -520 / -520 0 / 0 Weight 118.8 kg Intake: Oral 480 / 480 0 / 0 Output: Urine 1000 / 1000 Other: # Voids 2 Date of Last Bowel Movement 10/25/18 # Bowel Movements 0 1 - Constitutional no acute distress - Routine Neck Exam Absent: JVD - Routine Respiratory Exam Present: CTA bilaterally - Routine Cardiovascular Exam Present: S1, S2, murmur, irregular rhythm. Absent: gallop Comments: II/ VALARIE base with normal S2. - Routine Abdominal Exam Present: soft, normoactive bowel sounds. Absent: tenderness, organomegaly - Routine Extremities Exam Present: edema. Absent: cyanosis, clubbing Comments: trace pretibial edema Results 10/26/18 05:59 10/26/18 05:59 Cardiac Enzymes 10/25/18 10/25/18 10/25/18 Range/Units 07:30 13:46 20:03 Troponin I 0.23 H 0.21 H 0.19 H (0.02-0.05) ng/mL CBC 10/25/18 10/26/18 Range/Units 07:30 05:59 WBC 7.4 6.7 (4.0-11.0) th/mm3 RBC 3.78 L 3.33 L (4.50-5.90) mil/mm3 Hgb 13.3 11.9 L (13.0-17.0) gm/dL Hct 38.5 L 33.6 L (39.0-51.0) % Plt Count 245 188 (150-450) th/mm3 Neut # (Auto) 5.0 (1.8-7.7) th/mm3 Lymph # (Auto) 1.2 (1.0-4.8) th/mm3 [place] # (Auto) 1.1 H (0.0-0.9) th/mm3 Eos # (Auto) 0.1 (0.0-0.4) th/mm3 Baso # (Auto) 0.1 (0.0-0.2) th/mm3 Comprehensive Metabolic Panel 10/25/18 10/26/18 Range/Units 07:30 05:59 Sodium 137 132 L (136-145) meq/L Potassium 3.9 3.6 (3.5-5.1) meq/L Chloride 97 L 94 L (98-107) meq/L Carbon Dioxide 30.6 26.7 (21.0-32.0) meq/L BUN 10 11 (7-18) mg/dL Creatinine 1.11 0.94 (0.60-1.30) mg/dL Calcium 8.9 8.2 L (8.5-10.1) mg/dL Intake and Output 10/25/18 10/26/18 10/26/18 22:59 06:59 14:59 Intake Total 480 / 480 0 / 0 Output Total 1000 / 1000 Balance -520 / -520 0 / 0 Intake: Oral 480 / 480 0 / 0 Output: Urine 1000 / 1000 Other: # Voids 2 Date of Last Bowel Movement 10/25/18 # Bowel Movements 0 1 - Imaging and Cardiology Imaging: Impressions Carotid Doppler Study 10/25/18 00:00 CONCLUSION: 1. Right Internal Carotid Artery: No significant stenosis or atherosclerotic plaque is visualized. 2. Left Internal Carotid Artery: No significant stenosis or atherosclerotic plaque is visualized. Chest X-Ray 10/25/18 07:19 CONCLUSION: Moderate compensated cardiomegaly Head CT 10/25/18 07:19 CONCLUSION: Atrophy, otherwise negative for an acute process. Daron Latham MD FACR CONCLUSION: 1. . Knee X-Ray 10/25/18 07:19 CONCLUSION: Remote total arthroplasty, negative for fracture or joint effusion. Knee X-Ray 10/25/18 07:19 CONCLUSION: Soft tissue swelling, no joint effusion or fracture with remote total knee arthroplasty. Assessment and Plan - Assessment (1) Pre-syncope Code(s): R55 - Syncope and collapse Status: Acute Plan: Stable overnight. No recurrent near syncope. Except atrial fib, monitoring uneventful. Etiology not entirely clear. If he has recurrent symptomatology, consider loop recorder. OK for discharge from cardiac standpoint. (2) Coronary artery disease Code(s): I25.10 - Atherosclerotic heart disease of [place] coronary artery without angina pectoris Status: Chronic Plan: Minimally elevated troponin levels and flat. Negative CK. No angina symptoms. REC no additional w/u at this point. (3) Chronic atrial fibrillation Code(s): I48.2 - Chronic atrial fibrillation Status: Acute (4) Cardiomyopathy Code(s): I42.9 - Cardiomyopathy, unspecified Status: Chronic Plan: EF 40 % by echo, same as few months ago. No acute CHF. Recommend continue metoprolol. LOREN-I added as well. - Plan Code Status: full Discussed Condition With: patient (2) Coronary artery disease Qualifiers: Coronary Disease-Associated Artery/Lesion type: [place] artery [place] vs. transplanted heart: [place] heart Associated angina: without angina Qualified Code(s): I25.10 - Atherosclerotic heart disease of [place] coronary artery without angina pectoris (4) Cardiomyopathy Qualifiers: Cardiomyopathy type: unspecified Qualified Code(s): I42.9 - Cardiomyopathy, unspecified
[2018-10-26] MEDS: Ezetimibe 10 MG Tablet PO SCH (21:04)
[2018-10-27] MEDS: Famotidine 20 MG Tablet PO SCH ×2 (08:36→21:09)
[2018-10-27] MEDS: Furosemide 40 MG Tablet PO SCH (08:37)
[2018-10-27] MEDS: Folic Acid 1 MG Tablet PO SCH (08:37)
[2018-10-27] MEDS: Metoprolol Tartrate 50 MG Tablet PO SCH ×2 (08:38→21:10)
--- NOTE | 2018-10-27 09:49 | P.DCO ---
Diagnosis (1) Pre-syncope: Status: Acute (2) Chronic atrial fibrillation: Status: Acute (3) Contusion of left knee: Status: Acute (4) Cardiomyopathy: Status: Chronic Physical Therapy Order: Evaluate and treat Home Health Nursing Order: Nursing assessment with vital signs Case Management Consult Case Management Consult-Home Health: Yes I have seen patient Rah Bennett III on 10/27/18. My clinical findings support the need for the requested home health care services because: Deconditioned with increased weakness I certify that my clinical findings support that this patient is homebound because: Unsteady gait/balance and Poor cardiac reserve _ (1) Cardiomyopathy Qualifiers: Cardiomyopathy type: unspecified Qualified Code(s): I42.9 - Cardiomyopathy, unspecified
--- NOTE | 2018-10-27 09:52 | P.PNIM ---
Physical Exam Vital signs: Last Vital Signs Temp 100.6 F H 10/27/18 08:00 Pulse 81 10/27/18 08:00 Resp 20 10/27/18 08:00 BP 113/72 10/27/18 08:00 Pulse Ox 94 L 10/27/18 08:00 Intake & Output 10/25/18 10/26/18 10/27/18 10/28/18 06:59 06:59 06:59 06:59 Intake Total 480 / 480 620 / 620 Output Total 1000 / 1000 2150 / 2150 Balance -520 / -520 -1530 / -1530 Weight 122.47 kg 118.8 kg 118.3 kg Narrative: GENERAL: Well-nourished well-developed white male in no acute distress CARDIOVASCULAR: Irregular rhythm regular rate RESPIRATORY: Relatively clear to auscultation bilaterally GASTROINTESTINAL: Abdomen soft, non-tender, nondistended. Normoactive bowel sounds MUSCULOSKELETAL: Extremities without clubbing, cyanosis, trace edema, left knee with less swelling and abrasion over the patella, limited range of motion secondary to the pain NEUROLOGICAL: Awake and alert to person place and time and situation. No obvious cranial nerve deficits. Motor grossly within normal limits. Five out of 5 muscle strength in the arms; limited range of motion in left lower leg due to pain, right lower leg limited range of motion secondary to the pain, normal speech. PSYCHIATRIC: Appropriate mood and affect; insight and judgment normal. Results Labs CBC & Chem 7: 10/26/18 05:59 10/26/18 05:59 Assessment and Plan (1) Pre-syncope: Code(s): R55 - Syncope and collapse Status: Acute (2) Chronic atrial fibrillation: Code(s): I48.2 - Chronic atrial fibrillation Status: Acute (3) Contusion of left knee: Code(s): S80.02XA - Contusion of left knee, initial encounter Status: Acute (4) Cardiomyopathy: Code(s): I42.9 - Cardiomyopathy, unspecified Status: Chronic Plan 73-year-old white male with a history of chronic atrial fibrillation on anticoagulation, hypertension, coronary artery disease, congestive heart failure , peripheral artery disease presents to the ED after he sustained a fall preceded by dizziness. Status post fall with dizziness/near syncope with history of chronic atrial fibrillation with mildly elevated troponin Edgar significant changes in telemetry other than chronic atrial fibrillation. No significant changes with serial troponins and EKG. Status post evaluation with cardiology, Dr. Balderas feels there is no evidence for acute coronary syndrome. There is no EKG changes compared to the old EKG carotid ultrasound showed no significant stenosis. Repeat 2D echo showed EF of 40% , LOREN inhibitor Vasotec has been started. Cardiology has cleared him for discharge. Status post fall with left knee contusion-physical therapy consultation to evaluate gait and balance. Continue ice to the area and pain control. Possible discharge to home today if patient has better gait and balance with physical therapy History of chronic atrial fibrillation-continue metoprolol for rate control, continue with aspirin and Pradaxa. History of hypertension, better controlled we will continue to monitor with addition of Vasotec. History of chronic systolic congestive heart failure not in any acute exacerbation. Continue with home medication and Lasix and Vasotec. History of coronary disease, hyperlipidemiacontinue with aspirin beta karin and statin. Daily alcohol use rule out alcohol abuse - monitor for withdraw symptoms, CIWA protocol Macrocytosis likely due to history of daily alcohol use.-Start thiamine folate, check B12 and folate levels as outpatient. DVT prophylaxis Pradaxa. Placed on observation Discharge Planning: Home with home health care PT when able to ambulate Progress Note: Quality VTE Deep Vein Thrombosis/Pulmonary Embolism Present on Admission: No _ (1) Cardiomyopathy Qualifiers: Cardiomyopathy type: unspecified Qualified Code(s): I42.9 - Cardiomyopathy, unspecified
--- NOTE | 2018-10-27 10:00 | P.DS ---
DS: Providers Date of admission: 10/25/18 09:08 Primary care physician: Amari Hernandez MD Consults: 10/25/18 10:59 Consult to Cardiology Routine Consulting Provider: Bora Lowery Does the patient have a Circuit Court Judge who follows them?: Yes Preferred Surgical Consultant:: Sidney Fuentes Reason for Consultation: elevated troponin I with dizziness, hx of Afib, CAD , s/p fall Notified:: Office Spoke with:: PANFILO Date Notified:: 10/25/18 Time Notified:: 11:03 Ordering Provider: ANITA Brief History from admission: 73-year-old white male with a history of chronic atrial fibrillation, hypertension, hyperlipidemia, peripheral vascular disease, congestive heart failure presented emergency room after he sustained a fall earlier today about 12:30 in the morning. Patient states that he was attempting to go to the bathroom and fell close to the laundry room. Prior to the fall he felt slight dizziness. He did not lose conscious and fell on his left side injuring his left knee. Since the fall he could not put weight over the left knee and therefore came in for evaluation. He denies any loss of consciousness from the fall. He usually ambulates independently and has a history of bilateral knee replacements. He denies any associated palpitations, chest pains nor any active shortness of breath. He reports he has chronic dyspnea on exertion secondary to his chronic congestive heart failure is currently doing cardiac rehab. He states his potato chip cooker machine is Dr. Fuentes. Of note, he states over the past 2 days he has had intermittent dizziness. He denies any associated localized weakness of numbness at this time. He is currently on anticoagulation of Pradaxa for his chronic atrial fibrillation. Of note, patient's drinks a minimum of 7 alcoholic drinks on a daily basis. He denies history of alcohol withdrawal. DS: Diagnosis Discharge Diagnosis (1) Pre-syncope: Status: Acute (2) Chronic atrial fibrillation: Status: Acute (3) Contusion of left knee: Status: Acute (4) Cardiomyopathy: Status: Chronic DS: Summary 73-year-old white male with history of chronic atrial fibrillation and chronic systolic congestive heart failure, hypertension who presented to the emergency room after he sustained a fall with dizziness prior to the fall landing on his left knee. He denies any associated chest pain or shortness of breath. He was evaluated for his dizziness and near syncope and had a cardiology evaluation with Dr. Quarles who feels there is no evidence of acute coronary disease and recommended repeating a 2D echo which revealed EF of 40% an LOREN inhibitor Vasotec was added to his regimen. Carotid ultrasound showed no significant stenosis. Physical therapy was consulted to evaluate gait and balance as patient did sustain a left knee contusion after the fall. He was counseled concerning his daily alcohol use and placed on CIWA protocol. Anticoagulation Pradaxa was continued on the hospitalization. Home health care physical therapy and nursing to monitor his vital signs was arranged with transitioning to home. Time Spent with Patient Total time spent providing and/or coordinating discharge services: Quality: VTE Deep Vein Thrombosis/Pulmonary Embolism Present on Admission: No Results Impressions ITS Impressions Carotid Doppler Study 10/25/18 00:00 CONCLUSION: 1. Right Internal Carotid Artery: No significant stenosis or atherosclerotic plaque is visualized. 2. Left Internal Carotid Artery: No significant stenosis or atherosclerotic plaque is visualized. Chest X-Ray 10/25/18 07:19 CONCLUSION: Moderate compensated cardiomegaly Head CT 10/25/18 07:19 CONCLUSION: Atrophy, otherwise negative for an acute process. Daron Latham MD FACR CONCLUSION: 1. . Knee X-Ray 10/25/18 07:19 CONCLUSION: Soft tissue swelling, no joint effusion or fracture with remote total knee arthroplasty. Discharge Plan Discharge Disposition Patient Disposition: /Home Health Service Discharge Condition Condition: Stable Discharge Order Discharge Orders: Discharge Order (Routine); Ordered 10/27/18 Ordered By: Marbella Hopkins Cardiology Clear for Discharge (Routine); Ordered 10/26/18 Ordered By: Bora Lowery Discharge Details Discharge Comment: Dc after PTEvaluates patient Physicians Team Primary Care Provider: Amari Hernandez Attending Provider: Marbella Hopkins Other Providers: Bora Lowery Rxs /Orders / Referrals /Forms Prescriptions: New tramadol [Ultram] 50 mg Tablet 50 mg PO Q6H PRN (Reason: Acute Pain) Qty: 12 RF: 0 enalapril maleate 10 mg Tablet 10 mg PO BID Qty: 60 RF: 0 Continue multivitamin Tablet 1 tab PO DAILY RF: 0 furosemide [Lasix] 40 mg Tablet 40 mg PO DAILY RF: 0 atorvastatin [Lipitor] 40 mg Tablet 40 mg PO HS RF: 0 ranitidine HCl 75 mg Tablet 75 mg PO BID RF: 0 metoprolol tartrate 50 mg Tablet 50 mg PO BID RF: 0 aspirin 81 mg Tablet,Chewable 81 mg PO DAILY RF: 0 ezetimibe [Zetia] 10 mg Tablet 10 mg PO HS RF: 0 bupropion HCl [Wellbutrin XL] 300 mg Tablet Extended Release 24 Hr 300 mg PO QAM RF: 0 dabigatran etexilate [Pradaxa] 150 mg Capsule 150 mg PO BID RF: 0 potassium chloride 10 mEq Tablet Extended Release 10 meq PO DAILY RF: 0 Referrals: Amari Hernandez MD [Primary Care Provider] - See Instructions ( Please call the physician's office to book the appointment to be seen within 1 week.) Post Discharge Care Plan Care Plan Goals: Your Health Problems: Presyncope, chronic systolic congestive heart failure, left knee contusion status post fall Goals to Promote Your Health: * To prevent worsening of your condition * To maintain your health at the optimal level Directions to Meet Your Goals: * Take your medications as prescribed * Follow your dietary instruction * Follow activity as directed * Keep your appointments as scheduled * Take your immunizations and boosters as scheduled * If your symptoms worsen call your PCP * If no PCP go to Urgent Care or Emergency Room Smoking is dangerous to your health. Avoid second hand smoke. You may reach the 24-hour crisis hotline for domestic abuse at . Status ED Status: Left Department
[2018-10-27] MEDS: buPROPion 150 MG 12 HR Tablet PO SCH ×2 (10:58→21:09)
[2018-10-27] MEDS: LORazepam 1 MG Tablet PO PRN (11:57)
[2018-10-27] MEDS: Ezetimibe 10 MG Tablet PO SCH (21:08)
[2018-10-28] MEDS: Folic Acid 1 MG Tablet PO SCH (09:31)
[2018-10-28] MEDS: Metoprolol Tartrate 50 MG Tablet PO SCH ×2 (09:32→20:04)
[2018-10-28] MEDS: buPROPion 150 MG 12 HR Tablet PO SCH ×2 (09:32→20:03)
[2018-10-28] MEDS: Furosemide 40 MG Tablet PO SCH (09:32)
[2018-10-28] MEDS: Famotidine 20 MG Tablet PO SCH ×2 (09:32→20:03)
--- NOTE | 2018-10-28 11:40 | P.PNIM ---
Subjective Interval history: Patient had a bowel movement this morning was struggling with constipation previously. Still feels extremely weak and unable to transfer independently and ambulate. Understands the need to go to rehab. States that he has been drinking alcohol since he was in the 20s. Reports bilateral knee pain better. Has not had any further dizziness chest pains or palpitations. Physical Exam Vital signs: Last Vital Signs Temp 98.5 F 10/28/18 08:00 Pulse 96 H 10/28/18 08:00 Resp 18 10/28/18 08:00 BP 140/87 10/28/18 08:00 Pulse Ox 93 L 10/28/18 08:00 Intake & Output 10/26/18 10/27/18 10/28/18 10/29/18 06:59 06:59 06:59 06:59 Intake Total 480 / 480 620 / 620 480 / 480 Output Total 1000 / 1000 2150 / 2150 Balance -520 / -520 -1530 / -1530 480 / 480 Weight 118.8 kg 118.3 kg 119.3 kg Narrative: GENERAL: Well-nourished well-developed white male in no acute distress CARDIOVASCULAR: Irregular rhythm regular rate RESPIRATORY: Relatively clear to auscultation bilaterally GASTROINTESTINAL: Abdomen soft, non-tender, nondistended. Normoactive bowel sounds MUSCULOSKELETAL: Extremities without clubbing, cyanosis, trace edema, left knee with less swelling and abrasion over the patella, limited range of motion secondary to the pain NEUROLOGICAL: Awake and alert to person placetime . Motor strength 5 out of 5 bilateral upper extremities, lower extremities extremely weak and limited range of motion of the bilateral knees, normal speech Results Labs CBC & Chem 7: 10/26/18 05:59 10/26/18 05:59 Assessment and Plan (1) Pre-syncope: Code(s): R55 - Syncope and collapse Status: Acute (2) Chronic atrial fibrillation: Code(s): I48.2 - Chronic atrial fibrillation Status: Acute (3) Contusion of left knee: Code(s): S80.02XA - Contusion of left knee, initial encounter Status: Acute (4) Cardiomyopathy: Code(s): I42.9 - Cardiomyopathy, unspecified Status: Chronic Plan 73-year-old white male with a history of chronic atrial fibrillation on anticoagulation, hypertension, coronary artery disease, congestive heart failure , peripheral artery disease presents to the ED after he sustained a fall preceded by dizziness. Status post fall with dizziness/near syncope with history of chronic atrial fibrillation with mildly elevated troponin Edgar significant changes in telemetry other than chronic atrial fibrillation. No significant changes with serial troponins and EKG. Status post evaluation with cardiology, Dr. Balderas feels there is no evidence for acute coronary syndrome. There is no EKG changes compared to the old EKG carotid ultrasound showed no significant stenosis. Repeat 2D echo showed EF of 40% , LOREN inhibitor Vasotec has been started. Cardiology has cleared him for discharge. Acute alcohol withdrawal -continue neurological checks. Patient on CIWA protocol; cecessation counseling provided and continue detox. Continue thiamine folate. Status post fall with left knee contusion-physical therapy consultation to evaluate gait and balance. Continue ice to the area and pain control. History of chronic atrial fibrillation-continue metoprolol for rate control, continue with aspirin and Pradaxa. History of hypertension, better controlled we will continue to monitor with addition of Vasotec. History of chronic systolic congestive heart failure not in any acute exacerbation. Continue with home medication and Lasix and Vasotec. History of coronary disease, hyperlipidemiacontinue with aspirin beta karin and statin. Macrocytosis likely due to history of daily alcohol use.-Start thiamine folate, check B12 and folate levels as outpatient. DVT prophylaxis Pradaxa. Discuss his care with Kelly, his friend per patient's request as his is nonambulatory and unable to come visit him from home. Both are in agreement that he should be going to rehab. He will assist with visiting different rehabs for choice. His friend will also assist the couple in consideration to sell their current house and go to assisted living facility in the future. Placed on observation Discharge Planning: Home with home health care PT when able to ambulate Progress Note: Quality VTE Deep Vein Thrombosis/Pulmonary Embolism Present on Admission: No _ (1) Cardiomyopathy Qualifiers: Cardiomyopathy type: unspecified Qualified Code(s): I42.9 - Cardiomyopathy, unspecified
[2018-10-28] MEDS: Ezetimibe 10 MG Tablet PO SCH (20:04)
[2018-10-29] MEDS: Famotidine 20 MG Tablet PO SCH ×2 (09:56→22:17)
[2018-10-29] MEDS: Folic Acid 1 MG Tablet PO SCH (09:56)
[2018-10-29] MEDS: Metoprolol Tartrate 50 MG Tablet PO SCH ×2 (09:57→22:18)
[2018-10-29] MEDS: Furosemide 40 MG Tablet PO SCH (09:58)
[2018-10-29] MEDS: buPROPion 150 MG 12 HR Tablet PO SCH ×2 (09:59→22:17)
--- NOTE | 2018-10-29 10:16 | P.PNIM ---
Subjective Interval history: Patient sitting up try to eat breakfast. States that he is willing to go to rehab. He reports sometimes he sees specks of dirt move around and admits to hallucinations. Physical Exam Vital signs: Last Vital Signs Temp 98.2 F 10/29/18 08:00 Pulse 95 H 10/29/18 08:00 Resp 16 10/29/18 08:00 BP 110/80 10/29/18 08:00 Pulse Ox 99 10/29/18 08:00 Intake & Output 10/27/18 10/28/18 10/29/18 10/30/18 06:59 06:59 06:59 06:59 Intake Total 620 / 620 480 / 480 480 / 480 Output Total 2150 / 2150 600 / 600 Balance -1530 / -1530 480 / 480 -120 / -120 Weight 118.3 kg 119.3 kg 116.3 kg Narrative: GENERAL: Well-nourished well-developed white male in no acute distress CARDIOVASCULAR: Irregular rhythm regular rate RESPIRATORY: Relatively clear to auscultation bilaterally GASTROINTESTINAL: Abdomen soft, non-tender, nondistended. Normoactive bowel sounds MUSCULOSKELETAL: Extremities without clubbing, cyanosis, trace edema, left knee with less swelling and abrasion over the patella, limited range of motion secondary to the pain NEUROLOGICAL: Awake and alert to person place and time. Does move bilateral upper extremity lower extremities with generalized weakness. He is slightly anxious with some tremors. Results Labs CBC & Chem 7: 10/26/18 05:59 10/26/18 05:59 Assessment and Plan (1) Pre-syncope: Code(s): R55 - Syncope and collapse Status: Acute (2) Chronic atrial fibrillation: Code(s): I48.2 - Chronic atrial fibrillation Status: Acute (3) Contusion of left knee: Code(s): S80.02XA - Contusion of left knee, initial encounter Status: Acute (4) Cardiomyopathy: Code(s): I42.9 - Cardiomyopathy, unspecified Status: Chronic (5) Alcohol withdrawal delirium: Code(s): F10.231 - Alcohol dependence with withdrawal delirium Status: Acute Plan 73-year-old white male with a history of chronic atrial fibrillation on anticoagulation, hypertension, coronary artery disease, congestive heart failure , peripheral artery disease presents to the ED after he sustained a fall preceded by dizziness. Status post fall with dizziness/near syncope with history of chronic atrial fibrillation with mildly elevated troponin Edgar significant changes in telemetry other than chronic atrial fibrillation. No significant changes with serial troponins and EKG. Status post evaluation with cardiology, Dr. Balderas feels there is no evidence for acute coronary syndrome. There is no EKG changes compared to the old EKG carotid ultrasound showed no significant stenosis. Repeat 2D echo showed EF of 40% , LOREN inhibitor Vasotec has been started. Cardiology has cleared him for discharge. Acute alcohol withdrawal with mild delirium-continue neurological checks. Patient having visual hallucinations this morning. Patient on CIWA protocol and Ativan given; cecessation counseling provided and continue detox. Continue thiamine folate. Status post fall with left knee contusion-physical therapy consultation to evaluate gait and balance. Continue ice to the area and pain control. History of chronic atrial fibrillation-continue metoprolol for rate control, continue with aspirin and Pradaxa. History of hypertension, better controlled we will continue to monitor with addition of Vasotec. History of chronic systolic congestive heart failure not in any acute exacerbation. Continue with home medication and Lasix and Vasotec. History of coronary disease, hyperlipidemiacontinue with aspirin beta karin and statin. Macrocytosis likely due to history of daily alcohol use.-Start thiamine folate, check B12 and folate levels as outpatient. DVT prophylaxis Pradaxa. Discharge Planning: To [facility] when stable. Progress Note: Quality VTE Deep Vein Thrombosis/Pulmonary Embolism Present on Admission: No _ (1) Cardiomyopathy Qualifiers: Cardiomyopathy type: unspecified Qualified Code(s): I42.9 - Cardiomyopathy, unspecified
[2018-10-29] MEDS: Ezetimibe 10 MG Tablet PO SCH (22:18)
[2018-10-30] MEDS: Metoprolol Tartrate 50 MG Tablet PO SCH (09:01)
[2018-10-30] MEDS: Furosemide 40 MG Tablet PO SCH (09:02)
[2018-10-30] MEDS: Famotidine 20 MG Tablet PO SCH (09:02)
[2018-10-30] MEDS: Folic Acid 1 MG Tablet PO SCH (09:03)
[2018-10-30] MEDS: buPROPion 150 MG 12 HR Tablet PO SCH (09:03)
--- NOTE | 2018-10-30 10:17 | P.DS ---
DS: Providers Date of admission: 10/27/18 15:11 Primary care physician: Amari Hernandez MD Consults: 10/25/18 10:59 Consult to Cardiology Routine Consulting Provider: Bora Lowery Does the patient have a Shoe Fitter who follows them?: Yes Preferred Shoe Stitcher Odd:: Sidney Fuentes Reason for Consultation: elevated troponin I with dizziness, hx of Afib, CAD , s/p fall Notified:: Office Spoke with:: PANFILO Date Notified:: 10/25/18 Time Notified:: 11:03 Ordering Provider: ANITA 10/27/18 11:41 HUB Only Consult Order Routine Consulting Provider: PIERIS [employer] 10/28/18 10:47 HUB Only Consult Order Routine Consulting Provider: [facility],Agency DS: Diagnosis Discharge Diagnosis (1) Pre-syncope: Status: Resolved (2) Chronic atrial fibrillation: Status: Chronic (3) Contusion of left knee: Status: Acute (4) Cardiomyopathy: Status: Chronic (5) Alcohol withdrawal delirium: Status: Resolved DS: Summary 73-year-old white male with a history of chronic atrial fibrillation on anticoagulation, hypertension, coronary artery disease, daily alcohol use was initially placed on observation after he had a presyncope episode leading to a fall injuring his bilateral knee causing contusion. His cardiology was consulted Dr. Lowery due to mild elevation in his troponins and found to have no significant changes in the his EKG with a repeat 2D echo performed that revealed EF of 40%. Low-dose LOREN inhibitor Vasotec was started during the hospitalization. Due to his daily alcohol use patient went into acute alcohol withdrawal with mild delirium and neurological checks was initiated after admitting the patient to the hospital. He was placed on CIWA protocol and responded well to Ativan. He continued to participate in physical therapy. For his history of chronic systolic congestive heart failure his home medication Lasix was continued and he was not in any acute exacerbation during the hospitalization. At this time, patient will be transitioned to rehab. Time Spent with Patient Total time spent providing and/or coordinating discharge services: Less than 30 minutes Quality: VTE Deep Vein Thrombosis/Pulmonary Embolism Present on Admission: No Exam Narrative Exam Narrative: GENERAL: This is a well-nourished, well-developed patient, in no apparent distress. CARDIOVASCULAR: Irregular rate and rhythm RESPIRATORY: Relatively clear to auscultation. Breath sounds equal bilaterally. No wheezes, rales, or rhonchi. GASTROINTESTINAL: Abdomen soft, non-tender, nondistended. Normal active bowel sounds MUSCULOSKELETAL: Extremities without clubbing, cyanosis, trace edema, abrasion the left knee NEURO: Alert & Oriented x3 to person, place, time, Moves all ext x4 Results Impressions ITS Impressions Carotid Doppler Study 10/25/18 00:00 CONCLUSION: 1. Right Internal Carotid Artery: No significant stenosis or atherosclerotic plaque is visualized. 2. Left Internal Carotid Artery: No significant stenosis or atherosclerotic plaque is visualized. Chest X-Ray 10/25/18 07:19 CONCLUSION: Moderate compensated cardiomegaly Head CT 10/25/18 07:19 CONCLUSION: Atrophy, otherwise negative for an acute process. Daron Latham MD FACR CONCLUSION: 1. . Knee X-Ray 10/25/18 07:19 CONCLUSION: Soft tissue swelling, no joint effusion or fracture with remote total knee arthroplasty. Discharge Plan Discharge Disposition Patient Disposition: 03 Discharge to SNF Discharge Condition Condition: Stable Discharge Order Discharge Orders: Discharge Order (Routine); Ordered 10/30/18 Ordered By: Marbella Hopkins Cardiology Clear for Discharge (Routine); Ordered 10/26/18 Ordered By: Bora Lowery Physicians Team Primary Care Provider: Amari Hernandez Attending Provider: Marbella Hopkins Other Providers: Bora Lowery ; [facility] ; [facility] Rxs /Orders / Referrals /Forms Prescriptions: New tramadol [Ultram] 50 mg Tablet 50 mg PO Q6H PRN (Reason: Acute Pain) Qty: 12 RF: 0 lorazepam 1 mg Tablet 1 mg PO Q4-6H PRN (Reason: Anxiety) Qty: 20 RF: 0 enalapril maleate 5 mg Tablet 2.5 mg PO BID Qty: 60 RF: 0 Continue multivitamin Tablet 1 tab PO DAILY RF: 0 furosemide [Lasix] 40 mg Tablet 40 mg PO DAILY RF: 0 atorvastatin [Lipitor] 40 mg Tablet 40 mg PO HS RF: 0 ranitidine HCl 75 mg Tablet 75 mg PO BID RF: 0 metoprolol tartrate 50 mg Tablet 50 mg PO BID RF: 0 aspirin 81 mg Tablet,Chewable 81 mg PO DAILY RF: 0 ezetimibe [Zetia] 10 mg Tablet 10 mg PO HS RF: 0 bupropion HCl [Wellbutrin XL] 300 mg Tablet Extended Release 24 Hr 300 mg PO QAM RF: 0 dabigatran etexilate [Pradaxa] 150 mg Capsule 150 mg PO BID RF: 0 potassium chloride 10 mEq Tablet Extended Release 10 meq PO DAILY RF: 0 Referrals: Amari Hernandez MD [Primary Care Provider] - See Instructions ( Please call the physician's office to book the appointment to be seen within 1 week.) Discharge Instructions Patient Printed Instructions: Enalapril (By mouth), Lorazepam (By mouth), Tramadol (By mouth), Syncope (GEN) Post Discharge Care Plan Care Plan Goals: Your Health Problems: Presyncope, chronic systolic congestive heart failure, left knee contusion status post fall Goals to Promote Your Health: * To prevent worsening of your condition * To maintain your health at the optimal level Directions to Meet Your Goals: * Take your medications as prescribed * Follow your dietary instruction * Follow activity as directed * Keep your appointments as scheduled * Take your immunizations and boosters as scheduled * If your symptoms worsen call your PCP * If no PCP go to Urgent Care or Emergency Room Smoking is dangerous to your health. Avoid second hand smoke. You may reach the 24-hour crisis hotline for domestic abuse at . Status ED Status: Left Department
== END 2018-10-30 14:00 ==
LOC: NEDA 06:31 → NEPC 06:31 → N04 12:18
PROVIDERS: ADMIT Family Medicine; ATTEND Family Medicine
DX: I25.2 Old myocardial infarction; Z87.891 Personal history of nicotine dependence; G47.30 Sleep apnea, unspecified; I50.22 Chronic systolic (congestive) heart failure; Z96.653 Presence of artificial knee joint, bilateral; R53.1 Weakness; M25.561 Pain in right knee; R26.81 Unsteadiness on feet; Z79.02 Long term (current) use of antithrombotics/antiplatelets; F10.231 Alcohol dependence with withdrawal delirium; R42 Dizziness and giddiness; I71.4 Abdominal aortic aneurysm, without rupture; I35.0 Nonrheumatic aortic (valve) stenosis; Z79.82 Long term (current) use of aspirin; I11.0 Hypertensive heart disease with heart failure; I48.2 Chronic atrial fibrillation; W18.30XA Fall on same level, unspecified, initial encounter; I73.9 Peripheral vascular disease, unspecified; I42.9 Cardiomyopathy, unspecified; I87.2 Venous insufficiency (chronic) (peripheral); E78.5 Hyperlipidemia, unspecified; R55 Syncope and collapse; I25.10 Atherosclerotic heart disease of native coronary artery without angina pectoris; D75.89 Other specified diseases of blood and blood-forming organs; S80.02XA Contusion of left knee, initial encounter